=== PATIENT | male | born 1990 | race Caucasian/White ===

== ENCOUNTER 2022-02-15 23:37 | Emergency (ER) | payer SELFPAY ==
[2022-02-16] MEDS ORDERED: TETANUS & DIPHTHERIA TOX,ADULT 0.5 ML VIAL ONE (00:07)
[2022-02-16] MEDS ORDERED: LIDOCAINE 1% MPF 30 ML VIAL ONE (00:07)
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
[2022-02-17 12:49] VITALS: TEMP 97.9
[2022-02-17 12:51] VITALS: BP 124/68; O2SAT 99
--- NOTE | 2022-02-17 14:24 | RAD REPORT ---
EXAM DESCRIPTION: RAD - Ankle Right 3 View - 02/16/2022 12:19 am CLINICAL HISTORY: PAIN COMPARISON: None. FINDINGS: 3 views of the right ankle. No acute fracture or dislocation. Normal osseous mineralizatio n. IMPRESSION: 1. No acute fracture or dislocation. Electronically signed by: Ky Obrien 02/16/2022 12:32 AM CDT Due to temporary technical issues with the PACS/Fluency reporting system, reports are being signed by the in house radiologists without review as a courtesy to insure prompt reporting. The interpreting radiologist is fully responsible for the content of the report.
== END 2022-02-16 01:14 | disposition home or self-care (01) ==
LOC: ER 23:37
PROC: 0JQN0ZZ Repair Right Lower Leg Subcutaneous Tissue and Fascia, Open Approach (ICD-10-PCS; principal; 2022-02-16)
DX: S91.011A Laceration without foreign body, right ankle, initial encounter (principal); S80.811A Abrasion, right lower leg, initial encounter; S60.512A Abrasion of left hand, initial encounter; F17.210 Nicotine dependence, cigarettes, uncomplicated; Z23 Encounter for immunization
CPT/HCPCS: 90471; 90714; 99284